=== PATIENT | male | born 1995 | race Caucasian/White ===

== ENCOUNTER → 2022-06-11 16:00 | Outpatient (CLI) | payer OTHER, SELFPAY ==
--- NOTE | 2022-06-11 | DI.MRI.S_ITS ---
PROCEDURE: MR KNEE LT WO CON INDICATIONS: Sprain of anterior cruciate ligament TECHNIQUE: Noncontrast sagittal PD fast spin echo and T2 fast spin echo with fat saturation, sagittal 3-D FLASH with fat saturation; coronal T1 spin echo and PD fast spin echo with fat saturation, and axial PD fast spin echo with fat saturation through the knee. COMPARISON: None. FINDINGS: Image quality: Excellent. Menisci: There is horizontal tear of the peripheral aspect of the posterior horn of the medial meniscus. The lateral meniscus demonstrates normal morphology and internal signal. The meniscal root ligaments appear intact. Cruciate ligaments: The anterior cruciate ligament has a striated appearance, likely secondary to mild sprain. The posterior cruciate ligament is intact. Medial structures: There is mild sprain (grade 1) of the proximal deep layer of the medial collateral ligament. The semimembranosus tendon insertions and meniscocapsular junction appear intact. Visualized portions of the pes anserinus tendons appear normal. No abnormal bursal fluid. Lateral structures: The lateral collateral ligament and the biceps femoris tendon appear intact. The popliteus tendon appears normal. Iliotibial band appears normal. Anterior structures: The quadriceps and patellar tendons appear intact. Patellar alignment is normal. No femoral trochlear dysplasia or ventral trochlear prominence. No edema in the infrapatellar fat pad. Bones and cartilage: No fractures. There is mild bone marrow edema involving the medial femoral condyle and the lateral medial tibial plateau, consistent with bone contusions. Mild contusion is also seen deep to the femoral trochlea. The cartilage of the medial and lateral femorotibial compartments, as well as the patellofemoral compartment, appears normal in thickness. Joint space: There is small knee joint fluid. There is a small Magana's cyst. Normal appearing synovial plicae are incidentally noted. IMPRESSION: 1. ACL has a striated appearance consistent with mild sprain. 2. Grade 1 sprain of MCL. 3. Horizontal tear involving the posterior horn of the medial meniscus. 4. Mild bone contusions of the medial femoral condyle and medial tibial plateau. 5. Small knee joint effusion. 6. A small Magana's cyst. Dictated by: Eric Valdes M.D. on 06/12/2022 at 8:01 Approved by: Eric Valdes M.D. on 06/12/2022 at 8:34
== END ==
DX: S83.412A Sprain of medial collateral ligament of left knee, initial encounter (principal); S83.242A Other tear of medial meniscus, current injury, left knee, initial encounter; M25.462 Effusion, left knee; M71.22 Synovial cyst of popliteal space [Baker], left knee; S70.12XA Contusion of left thigh, initial encounter
CPT/HCPCS: 73721

== ENCOUNTER 2022-11-02 12:22 | Emergency (ER) | payer OTHER, SELFPAY ==
[2022-11-02 12:47] VITALS: BP 140/99; PULSE 59; RESP 18; TEMP 37.3; O2SAT 97; BMI 25.0
[2022-11-02] MEDS: LIDOCAINE 2% INJ SDV 5 ML INJ (16:14)
--- NOTE | 2022-11-02 16:17 | PC.NURSE ---
assessment per Deanna PINEDA, this nurse in agreement
--- NOTE | 2022-11-02 16:20 | ED_ITS ---
HPI - Wound/Laceration <MIRIAM Diaz - Last Filed: 11/02/22 16:26> General Chief Complaint: Wound/Laceration Stated Complaint: Lac on head Time Seen by Provider: 11/02/22 15:40 Source: patient Mode of arrival: Family Vehicle History of Present Illness HPI narrative: This is a 27-year-old male presents to the emergency department with a laceration to his forehead he sustained when he dropped a chair on his head while trying to move it just prior to arrival. He denies loss of consciousness, altered vision, headache, numbness or tingling. States his last tetanus was 4 years ago. He denies any imbalance, dizziness, blurred vision vision changes. Review of Systems <MIRIAM Diaz - Last Filed: 11/02/22 16:26> Review of Systems Narrative: Review of systems is negative for acute abnormalities unless otherwise noted in HPI Patient History <MIRIAM Diaz - Last Filed: 11/02/22 16:26> Social History Smoking Status: Never smoker Smoking Status: Never smoker alcohol intake frequency: 0-2 drinks per day Substance Use Type: does not use Exam <MIRIAM Diaz - Last Filed: 11/02/22 16:26> Narrative Exam Narrative: Reviewed vitals signs and nursing notes. General: cooperative, comfortable, in no acute distress, well groomed HEENT: symmetrical facial expressions, moist mucous membranes, vertical and linear laceration between his eyebrows at the hairline 3.5 cm in length, wound was thoroughly cleansed, without foreign body, deep injury, skull depression, crepitus, or injury to deep structures including the galea. Suture repair was completed without difficulty. Covered with a Band-Aid Neuro: normal speech and cognition, A&O x3, ambulatory, clear speech Psych: mental status is grossly normal, congruent mood, normal affect, pleasant and cooperative Initial Vital Signs Initial Vital Signs: Vital Signs Temperature 99.1 F 11/02/22 12:47 Pulse Rate 59 L 11/02/22 12:47 Respiratory Rate 18 11/02/22 12:47 Blood Pressure 140/99 H 11/02/22 12:47 Pulse Oximetry 97 11/02/22 12:47 Oxygen Delivery Method 11/02/22 12:47 <Dianne Stanton DO - Last Filed: 11/03/22 12:53> Initial Vital Signs Initial Vital Signs: Vital Signs Temperature 99.1 F 11/02/22 12:47 Pulse Rate 59 L 11/02/22 12:47 Respiratory Rate 18 11/02/22 12:47 Blood Pressure 140/99 H 11/02/22 12:47 Pulse Oximetry 97 11/02/22 12:47 Oxygen Delivery Method 11/02/22 12:47 Procedures <MIRIAM Diaz - Last Filed: 11/02/22 16:26> Laceration Repair Laceration 1: Site: face Size (cm): 3.5 Description: linear Depth: simple, single layer Local Anesthetic: lidocaine 2% Amount of anesthesia used (mL): 2 Pre-repair: wound explored, irrigated extensively and deep structures intact Skin layer closed with: nylon Skin layer suture size: 6-0 Number of sutures: 7 Technique: simple, interrupted Course <MIRIAM Diaz - Last Filed: 11/02/22 16:26> Orders Ordered: Discontinued Medications Lidocaine HCl (Lidocaine 2% Inj Sdv) 5 ml INJ INTRA-OP ONE Stop: 11/02/22 15:41 Last Admin: 11/02/22 16:14 Dose: 5 ml Documented By: LAYA Vital Signs Vital signs: Vital Signs - 8 hr 11/02/22 12:47 Temperature 99.1 F Pulse Rate 59 L Respiratory Rate 18 Blood Pressure 140/99 H Pulse Oximetry 97 Oxygen Delivery Method Room Air <Dianne Stanton DO - Last Filed: 11/03/22 12:53> Orders Ordered: Discontinued Medications Lidocaine HCl (Lidocaine 2% Inj Sdv) 5 ml INJ INTRA-OP ONE Stop: 11/02/22 15:41 Last Admin: 11/02/22 16:14 Dose: 5 ml Documented By: LAYA Vital Signs Vital signs: Vital Signs - 8 hr 11/02/22 12:47 Temperature 99.1 F Pulse Rate 59 L Respiratory Rate 18 Blood Pressure 140/99 H Pulse Oximetry 97 Oxygen Delivery Method Room Air MDM - Wound/Laceration <MIRIAM Diaz - Last Filed: 11/02/22 16:26> MDM Narrative Medical decision making narrative: This is a 27-year-old male who presents to the emergency department with a forehead laceration from a chair striking his forehead causing laceration. He is without signs of concussion,, neck pain, focal neuro deficit, vision changes, or ongoing bleeding. His tetanus was updated 4 years ago, was not updated today. Suture repair was completed without difficulty or complication. Patient's wound was covered with a Band-Aid. Recommend he have his sutures removed in 5-7 days, follow-up with primary care as needed for return to duty. Stay hydrated, use Tylenol and ibuprofen with topical antibiotic ointment as needed. Patient is appropriate and amenable to discharge home. Vital signs are stable on repeat examination is unremarkable. Patient has been informed of results. Patient has been given strict return to ER precautions for any new or worsening symptoms. Patient understands to follow up closely with outpatient providers as instructed. Patient understands plan and agrees to discharge home. All questions and concerns answered at this time. <Dianne Stanton, DO - Last Filed: 11/03/22 12:53> [facility] Narrative Medical decision making narrative: This is a 27-year-old male who presents to the emergency department with a forehead laceration from a chair striking his forehead causing laceration. He is without signs of concussion, neck pain, focal neuro deficit, vision changes, or ongoing bleeding. His tetanus was updated 4 years ago, was not updated today. Suture repair was completed without difficulty or complication. Patient's wound was covered with a Band-Aid. Recommend he have his sutures removed in 5-7 days, follow-up with primary care as needed for return to duty. Stay hydrated, use Tylenol and ibuprofen with topical antibiotic ointment as needed. Patient is appropriate and amenable to discharge home. Vital signs are stable on repeat examination is unremarkable. Patient has been informed of results. Patient has been given strict return to ER precautions for any new or worsening symptoms. Patient understands to follow up closely with outpatient providers as instructed. Patient understands plan and agrees to discharge home. All questions and concerns answered at this time. Discharge Plan Departure Patient Disposition: Home Clinical Impression: Forehead laceration Qualifiers: Encounter type: initial encounter Qualified Code(s): S01.81XA - Laceration without foreign body of other part of head, initial encounter Instructions: How to Care for a Laceration After Repair, DI for Laceration Repair Activity Restrictions/Additional Instructions: *You have been diagnosed with a laceration to your forehead, please have your sutures removed in 5-7 days. Use topical antibiotic ointment and a Band-Aid to help keep it clean, may wash gently with a gentle cleanser, please use Tylenol and ibuprofen as needed for pain if you have symptoms of a concussion, please stay home from work. This includes difficulty concentrating, headache, dizziness, sensitivity to light and, feeling more tired than usual. I hope you heal well, please return to the emergency department for any new or worsening changes, you sunscreen in the summer time to prevent scarring. *What to do: *Please continue to take your regular medications as directed. [ ] New medication prescriptions sent to your pharmacy: [ ] [ ] New medication written as a paper prescription [ ]x No new medications given *Please follow up with your primary care provider in 2-3 days, call for an appointment. Let them know you were seen in the Emergency Department and that we asked that you be seen for follow-up. We will electronically transmit a record of today's note if your PCP is in our system *If you do not have a primary care provider please contact [phone] to establish care with one of [facility] primary care providers. *Return to Emergency Department if you should have any new, worsening, or concerning symptoms, such as [fever greater than 101F, chills, worsening pain, persistent vomiting or other bothersome symptoms]. Referrals: Provider,Selam JAMES [Primary Care Provider] - Visit Report Forms: Patient Portal/API <Dianne Stanton DO - Last Filed: 11/03/22 12:53> [facility] ED Attending Antonio Attestation: I was immediately available in the department for consultation. Documentation has been reviewed.
[2022-11-02 16:24] VITALS: BP 137/82; PULSE 58; RESP 16; O2SAT 100
== END 2022-11-02 16:28 | disposition home or self-care (01) ==
PROVIDERS: Emergency Provider Nurse Practitioner Critical Care Medicine
DX: S01.81XA Laceration without foreign body of other part of head, initial encounter (principal); W22.8XXA Striking against or struck by other objects, initial encounter
CPT/HCPCS: 12013; 99282; 99283

== ENCOUNTER 2023-02-07 11:30 | Emergency (ER) | payer OTHER, SELFPAY ==
[2023-02-07 11:44] VITALS: BP 122/72; PULSE 48; RESP 16; TEMP 36.6; O2SAT 100; BMI 25.0
--- NOTE | 2023-02-07 11:49 | DI.RAD.S_ITS ---
PROCEDURE: XR ANKLE RT MIN 3V INDICATIONS: twisted ankle trail running and fell TECHNIQUE: 3 views of the ankle were acquired. COMPARISON: None. FINDINGS: Bones: No acute fractures or dislocations suspected. There is a well ossified bone measuring 3-4 mm on the dorsal side of the midfoot which appears well corticated and is probably not acute.. Ankle mortise is normally aligned. No suspicious bony lesions. Soft tissues: No tibiotalar joint effusion. Achilles tendon appears normal. IMPRESSION: 1. No fracture of the distal fibula, tibia, or talus. 2. A well ossified 3-4 mm bone density on the dorsal side of the proximal foot is probably not acute. Please correlate clinically. Dictated by: Nicholas Sagastume M.D. on 02/07/2023 at 11:25 Approved by: Nicholas Sagastume M.D. on 02/07/2023 at 11:28
--- NOTE | 2023-02-07 13:07 | ED_ITS ---
HPI - Extremity Injury (Lower) <MIRIAM Diaz - Last Filed: 02/07/23 13:23> General Chief Complaint: Extremity Injury, Lower Stated Complaint: ankle injury Time Seen by Provider: 02/07/23 12:49 History of Present Illness HPI Narrative: This is a 27-year-old gentleman who presents to the emergency department complaining of right ankle pain after he fell on a run this morning. He states that it may have twisted or he landed on it but he complains of pain on the anterior lateral aspect of his right ankle. He denies weakness, complains of pain while walking but is bearing weight. He took ibuprofen prior to his arrival, denies numbness or tingling, knee pain, or other injury. He is full range of motion, states it is worse with dorsiflexion. Patient History <MIRIAM Diaz - Last Filed: 02/07/23 13:23> Social History Smoking Status: Never smoker Smoking Status: Never smoker alcohol intake frequency: 0-2 drinks per day Substance Use Type: does not use Exam <MIRIAM Diaz - Last Filed: 02/07/23 13:23> Narrative Exam Narrative: Reviewed vitals signs and nursing notes. MSK: moves all extremities, neurovascularly intact, no weakness, normal tone, right ankle without edema, ecchymosis, patient has tenderness over ATFL on the right ankle, no tenderness over bilateral malleoli, Achilles tendon, proximal 5th metatarsal, or MTP joints Skin: brisk capillary refill, without rash or wound Neuro: normal speech and cognition, A&O x3, ambulatory, clear speech Initial Vital Signs Initial Vital Signs: Vital Signs Temperature 97.8 F 02/07/23 11:44 Pulse Rate 48 L 02/07/23 11:44 Respiratory Rate 16 02/07/23 11:44 Blood Pressure 122/72 02/07/23 11:44 Pulse Oximetry 100 02/07/23 11:44 Oxygen Delivery Method Room Air 02/07/23 11:44 <Moris Topete DO - Last Filed: 02/07/23 14:18> Initial Vital Signs Initial Vital Signs: Vital Signs Temperature 97.8 F 02/07/23 11:44 Pulse Rate 48 L 02/07/23 11:44 Respiratory Rate 16 02/07/23 11:44 Blood Pressure 122/72 02/07/23 11:44 Pulse Oximetry 100 02/07/23 11:44 Oxygen Delivery Method Room Air 02/07/23 11:44 Procedures <MIRIAM Diaz - Last Filed: 02/07/23 13:23> Orthopedic Splinting/Casting Injury #1: Side: right Lower Extremity Injury Location: ankle Lower Extremity Immobilizer: AirCast Post splinting neuro exam: intact and no change Post splinting vascular exam: intact Placed by: Nursing Course <MIRIAM Diaz - Last Filed: 02/07/23 13:23> Orders Ordered: ED Orders 02/07/23 11:49 XR ankle RT min 3V Stat Vital Signs Vital signs: Vital Signs - 8 hr 02/07/23 11:44 Temperature 97.8 F Pulse Rate 48 L Respiratory Rate 16 Blood Pressure 122/72 Pulse Oximetry 100 Oxygen Delivery Method Room Air <Moris Topete DO - Last Filed: 02/07/23 14:18> Orders Ordered: ED Orders 02/07/23 11:49 XR ankle RT min 3V Stat Vital Signs Vital signs: Vital Signs - 8 hr 02/07/23 11:44 Temperature 97.8 F Pulse Rate 48 L Respiratory Rate 16 Blood Pressure 122/72 Pulse Oximetry 100 Oxygen Delivery Method Room Air MDM - Extremity Injury (Lower) <ROSE DiazP - Last Filed: 02/07/23 13:23> Imaging Data Extremity x-ray #1: Radiologist's Impression: PROCEDURE:? XR ANKLE RT MIN 3V ? INDICATIONS:? twisted ankle trail running and fell ? TECHNIQUE:? 3 views of the ankle were acquired.? ? COMPARISON:? None. ? FINDINGS:? ? Bones:? No acute fractures or dislocations suspected.? There is a well ossified bone measuring 3-4 mm on the dorsal side of the midfoot which appears well corticated and is probably not acute..? Ankle mortise is normally aligned.? No suspicious bony lesions.? ? Soft tissues:? No tibiotalar joint effusion.? Achilles tendon appears normal.? ? ? IMPRESSION:? 1. No fracture of the distal fibula, tibia, or talus. 2. A well ossified 3-4 mm bone density on the dorsal side of the proximal foot is probably not acute.? Please correlate clinically.? Dictated by: Nicholas Sagastume M.D. on 02/07/2023 at 11:25 ? ? Approved by: Nicholas Sagastume M.D. on 02/07/2023 at 11:28 ? MDM Narrative Medical decision making narrative: Chief Complaint: Independent historian: Patient Differential diagnoses include but are not limited to: Sprain/strain, ligamental injury, acute fracture, contusion I have independently reviewed the patient's vital signs and nursing notes as well as prior records if available. Right ankle x-rays without acute bony abnormality Pertinent Imaging reviewed: Right ankle x-ray does not show acute fracture of the distal fibula, tibia or talus. It mentions well ossified 3-4 mm bone density on the dorsal side of the proximal foot but this is not where patient has any tenderness. Patient does not have any tenderness over bilateral malleoli, Achilles tendon, proximal 5th metatarsal and can bear weight without difficulty. He took ibuprofen prior to arrival, was splinted in a air cast as he is ambulatory without neurovascular deficit. Encouraged him to rest, ice, elevate and follow- up with primary care as needed. Discussed possibility of occult fracture and patient can follow-up for repeat x-ray in 7-10 days. Social considerations that may affect disposition: none Questions are addressed and there is agreement with the plan and for follow-up. Patient is appropriate for outpatient management. MIPS: This encounter doesn't have any diagnosis' associated with MIPS criteria. Discharge Plan Departure Patient Disposition: Home Clinical Impression: Ankle sprain and strain Instructions: Ankle Sprain Activity Restrictions/Additional Instructions: *You have been diagnosed with a right ankle sprain without evidence of acute fracture on your x-ray. If you have worsening pain over the next few days, especially with bearing weight then please reduce your activity level, follow-up with your primary care provider or the walk-in clinic for repeat x-ray in 7-10 days. Please use the stirrup splint as much as possible, elevate, ice it, take Tylenol and ibuprofen every 6 hours with food and water and this should start to feel better in the next few days. The time to rest it is now, I hope you feel better soon. *What to do: *Please continue to take your regular medications as directed. [ ] New medication prescriptions sent to your pharmacy: [ ] [ ] New medication written as a paper prescription [x ] No new medications given *Please follow up with your primary care provider in 2-3 days, call for an appointment. Let them know you were seen in the Emergency Department and that we asked that you be seen for follow-up. We will electronically transmit a record of today's note if your PCP is in our system *If you do not have a primary care provider please contact [phone] to establish care with one of the [facility] primary care providers. *Return to Emergency Department if you should have any new, worsening, or concerning symptoms, such as [fever greater than 101F, chills, worsening pain, persistent vomiting or other bothersome symptoms]. Referrals: ProviderSelam [Primary Care Provider] - Stand Alone Forms: Patient Portal/API <Moris Topete DO - Last Filed: 02/07/23 14:18> Cosign ED Attending Coslaliature Attestation: Dr Topete Co-Sign Statement: I was available for consultation during this patient's emergency department visit. This chart is signed by myself for administrative purposes only. I did not have direct contact with this patient during this visit. They were seen independently by the APC.
== END 2023-02-07 13:35 | disposition home or self-care (01) ==
PROVIDERS: Emergency Provider Nurse Practitioner Critical Care Medicine
DX: S93.401A Sprain of unspecified ligament of right ankle, initial encounter (principal); S96.911A Strain of unspecified muscle and tendon at ankle and foot level, right foot, initial encounter; W18.30XA Fall on same level, unspecified, initial encounter; Y93.02 Activity, running
CPT/HCPCS: 73610; 99283